=== PATIENT | male | born 1975 | race Caucasian/White ===

== ENCOUNTER 2020-12-07 10:56 | Outpatient (CLI) | payer MEDICAID, SELFPAY ==
--- NOTE | 2020-12-07 11:04 | MR_ITS ---
WS: [id number] MRI THORACIC SPINE WITHOUT CONTRAST TECHNIQUE: Sagittal T1, T2 and STIR imaging. Axial T2 imaging. Noncontrast imaging obtained. CLINICAL INFORMATION: STABLE BURST FRACTURE OF T5-T6 COMPARISON: None. FINDINGS: Mild thoracic curve. Mild thoracic kyphosis. Chronic appearing compression fracture involving the T6 vertebral body with anterior wedging. No significant retropulsion. Loss of approximately 75% vertebra l body height in the mid vertebral body with anterior wedging. No high-grade central canal stenosis. Hemangioma T2 vertebral body measuring 11 mm. Cord signal is normal. No high-grade central canal stenosis. Moderate facet arthropathy lower thoraci c spine. Normal caliber thoracic aorta. Adrenal glands are normal. Small central protrusion cervical spine at C5-6 with slight effacement of ventral thecal sac. MR/MR thoracic spin wo con* [id number] IMPRESSION: 1. Burst type compression fracture T6 vertebral body with fatty marrow replace ment. This has a chronic appearance with loss of approximately 75% vertebral magen dy height. No significant retropulsion. Anterior wedging. No prior comparisons. 2. Spinal canal is patent. Cord signal is normal. 3. Incidental hemangioma T2 vertebral body measuring 11.4 mm 4. Moderate facet arthropathy lower thoracic spine. 5. Small central disc protrusion C5-6.
--- NOTE | 2020-12-07 11:05 | XR_ITS ---
WS: [id number] Exam: XR thoracic spine 3V* [id number] Date/Time of Exam: 12/07/2020 11:09 AM Reason For Exam: STABLE BURST FRACTURE OF T5-T6 There is a compression fracture of the T6 with approximately 50% loss of vertebral height and no obvi ous posterior displacement. This may be a healed fracture. No other fractures are seen. No significan t scoliosis. Paraspinal soft tissues are unremarkable. XR/XR thoracic spine 3V* [id number] IMPRESSION: 1. Compression fracture of T6 with about 50% loss of vertebral height. This may represent an old fracture however the exact age is difficult to determine. Thi s should be correlated with recent MRI findings. 2. No other sign of fracture.
== END 2020-12-07 10:57 | disposition home or self-care (01) ==
PROVIDERS: PCP Nurse Practitioner Family; Visit Provider Nurse Practitioner
DX: S22.051A Stable burst fracture of T5-T6 vertebra, initial encounter for closed fracture (principal); M50.222 Other cervical disc displacement at C5-C6 level; M47.814 Spondylosis without myelopathy or radiculopathy, thoracic region; D18.00 Hemangioma unspecified site; X58.XXXA Exposure to other specified factors, initial encounter
CPT/HCPCS: 72072; 72146

== ENCOUNTER 2021-03-09 15:17 | Outpatient (CLI) | payer MEDICAID, SELFPAY ==
--- NOTE | 2021-03-09 15:37 | MR_ITS ---
WS: [id number] MRI LUMBAR SPINE NONCONTRAST TECHNIQUE: Sagittal T1, T2 and STIR imaging. Axial T1 and T2 imaging. CLINICAL INFORMATION: VERTEBROGENIC LOW BACK PAIN COMPARISON: None. FINDINGS: Mild lumbar curve. No acute compression. Disc space narrowing worse L4-5 and L5-S1. No high-grade maite tral canal stenosis. Chronic compression with vertebral plana at T6. L1-L2: Normal. L2-L3: Mild annular bulging. Slight narrowing of this subarticular recess bilaterally left greater th an right. Small right foraminal protrusion with annular fissure contacts the exiting right L2 nerve r oot. Small left foraminal protrusion with mild left foraminal narrowing. Mild facet arthropathy. L3-L4: Mild annular bulging with a tiny central disc protrusion. Tiny annular fissure. Mild central c anal stenosis. Slight impingement traversing L4 nerve roots in the subarticular recess bilaterally. M ild facet arthropathy with ligamentum flavum flavum hypertrophy. Mild left foraminal narrowing. L4-L5: Disc osteophytic ridging with right hemivertebra segmentation anomaly. Mild/moderate right and no significant left bony foraminal narrowing. Narrowing of the right subarticular recess. Spinal can al is patent. L5-S1: Mild disc osteophytic ridging with slight effacement of ventral thecal sac. Slight impingement on the right S1 nerve root. Mild facet arthropathy. Mild bilateral bony foraminal narrowing. Visualized pelvic bony structures: Normal. Paravertebral soft tissues: Normal. MR/MR lumbar spine wo con* [id number] IMPRESSION: 1. Mild lumbar curve. No acute compression. No high-grade central canal stenos is. 2. Mild annular bulging L2-3 with a small right foraminal protrusion. This sli ghtly contacts the exiting right L2 nerve root with small annular fissure. Narr owing of the left subarticular recess at this level. 3. Annular bulging with a small annular fissure L3-4 and slight impingement on the traversing L4 nerve roots bilaterally. Mild left foraminal narrowing. 4. Hemivertebra or segmentation anomaly right L4-5 with mild to moderate right proximal foraminal narrowing. Spinal canal is patent. 5. Eccentric osteophytic ridging L5-S1 with mild bilateral foraminal narrowing and slight contact of the exiting L5 nerve roots bilaterally. Slight impingeme nt traversing right S1 nerve root. 6. Chronic vertebral plana compression deformity T6 vertebral body.
--- NOTE | 2021-03-09 15:38 | XR_ITS ---
WS: [id number] LUMBAR SPINE FLEXION AND EXTENSION TECHNIQUE: 3 views of the lumbar spine: Lateral neutral, flexion, and extension views. CLINICAL INFORMATION: VERTEBROGENIC LOW BACK PAIN, COMMENT ON PRESENCE OR ABSENCE COMPARISON: None. FINDINGS: Mild lumbar curve. No acute compression. Disc space narrowing worse at L4-L5 and L5-S1. Trace retroli sthesis L3 on L4. No instability on flexion-extension. 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 Disc space fusion L4-5. Moderate facet arthropathy L5-S1. Aortic calcification. XR/XR lumbar spine f/e only [id number] IMPRESSION: 1. Mild lumbar curve. No acute compression. 2. 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 3. Disc space narrowing worse L4-L5 and L5-S1. 4. Moderate facet arthropathy L5-S1. 5. No instability on flexion-extension.
== END 2021-03-09 15:18 | disposition home or self-care (01) ==
PROVIDERS: PCP Nurse Practitioner Family; Visit Provider Anesthesiology Pain Medicine
DX: M54.51 Vertebrogenic low back pain (principal); M47.817 Spondylosis without myelopathy or radiculopathy, lumbosacral region; Q76.49 Other congenital malformations of spine, not associated with scoliosis
CPT/HCPCS: 72120; 72148